=== PATIENT | male | born 1970 | race Caucasian/White ===

== ENCOUNTER 2020-02-10 23:36 | Emergency (ER) | payer OTHER, SELFPAY ==
[2020-02-10 23:56] VITALS: BP 158/103; PULSE 69; RESP 16; O2SAT 96; BMI 38.7
[2020-02-11] VITALS (8 sets, daily range): BP systolic 133; BP diastolic 77; PULSE 60–68; RESP 16; O2SAT 96–97
--- NOTE | 2020-02-11 00:23 | ED_ITS ---
HPI - Abdominal Pain General Chief Complaint: Abdominal Pain Stated Complaint: lower left abd and testicle pain Time Seen by Provider: 02/11/20 00:04 Source: patient History of Present Illness HPI narrative: Patient complains sudden onset left lower quadrant pain radiating to left testicle 8:00 p.m. last night, 28 hours ago, no nausea vomiting no blood in urine or stools no urinary complaints. No recent illness. No cough cold congestion fever chills. No back pain. No numbness tingling or weakness. No syncope. Patient states pain has been waxing and waning. At times improved with NSAIDs including aspirin and naproxen. No history of hernia. Related Data Previous Rx's Medication Instructions Recorded ondansetron 4 mg PO Q8H PRN #10 tab 02/11/20 tamsulosin [Flomax] 0.4 mg PO BEDTIME #7 cap 02/11/20 Allergies Allergy/AdvReac Type Severity Reaction Status Date / Time No Known Drug Allergies Allergy Verified 02/11/20 00:51 Review of Systems Review of Systems Narrative: GENERAL: Denies chills, fatigue, malaise, fever, sweats. HEENT: Denies sinus pain, ear pain, sore throat, difficulty swallowing, dizziness. RESPIRATORY: Denies dyspnea, cough, wheezing, hemoptysis, sputum. CARDIOVASCULAR: Denies chest pain, palpitations, orthopnea, edema, GASTROINTESTINAL: Complains of abdominal pain, no nausea vomiting diarrhea : Denies dysuria, frequency, incontinence, hematuria, urinary retention. Complains of left testicular pain, no urethral discharge MUSCULOSKELETAL: denies weakness, joint pain, or bony pain SKIN: Denies rash, skin lesions, or other NEUROLOGIC: Denies weakness, headache, numbness, change in speech, confusion, seizures, incoordination. PSYCHIATRIC: No concerning psychosocial issues. ROS Unobtainable: All systems reviewed & are unremarkable except as noted in HPI and below Exam Narrative Exam Narrative: GENERAL: patient appears stated age. Well-nourished, well- developed patient, in no distress, not toxic HEAD: Atraumatic. Normocephalic. EYES: Pupils equal round and reactive. Extraocular motions intact. No scleral icterus. No injection or drainage. ENT: Nose without bleeding, purulent drainage. Throat without erythema, tonsillar hypertrophy or exudate. Airway patent. NECK: Trachea midline. Non tender CARDIOVASCULAR: Regular rate and rhythm without murmurs, gallops, or rubs. RESPIRATORY: Clear to auscultation. Breath sounds equal bilaterally. No wheezes, rales, or rhonchi. GASTROINTESTINAL: Abdomen soft, reproducible left lower quadrant tenderness no rebound tenderness, no peritoneal signs, bowel sounds normal : Patient is uncircumcised, no lesions, no urethral discharge, on examination of bilateral testicles, nontender testicles and epididymis no induration or erythema or edema of scrotal areas, no palpable hernia on digital insertion of scrotal sac and coughing EXTREMITIES: No edema or joint tenderness. BACK: Nontender without deformity or crepitance. No flank tenderness. NEURO: AOx3. SKIN: No rash or erythema of visible areas Initial Vital Signs Initial Vital Signs: Vital Signs Pulse Rate 69 02/10/20 23:56 Respiratory Rate 16 02/10/20 23:56 Blood Pressure 158/103 H 02/10/20 23:56 Pulse Oximetry 96 02/10/20 23:56 Course Course Course Narrative: Pain resolved with Toradol. Not toxic, Orders Ordered: ED Orders 02/11/20 00:23 CT abdomen pelvis wo con Stat 02/11/20 00:47 Complete Blood Count AUTO DIFF Stat Comprehensive Metabolic Panel Stat 02/11/20 02:40 Urinalysis and Microscopic Stat Discontinued Medications Sodium Chloride (Normal Saline 0.9%) 1,000 mls @ 1,000 mls/hr IV BOLUS ONE Stop: 02/11/20 01:17 Last Infusion: 02/11/20 02:29 Dose: 0 mls/hr Documented by: Admin: 02/11/20 01:17 Dose: 1,000 mls/hr Documented by: MANOLO Ketorolac Tromethamine (Toradol) 15 mg IV NOW ONE Stop: 02/11/20 01:11 Last Admin: 02/11/20 01:17 Dose: 15 mg Documented by: MANOLO Tamsulosin HCl (Flomax) 0.4 mg PO NOW ONE Stop: 02/11/20 01:58 Last Admin: 02/11/20 02:32 Dose: 0.4 mg Documented by: MANOLO Reevaluation(s) Reevaluation #1: Pain improved with Toradol. Patient desires discharge home. Patient agrees no narcotic prescription Time: 01:59 Vital Signs Vital signs: Vital Signs - 8 hr 02/10/20 23:56 02/11/20 01:36 02/11/20 01:40 Pulse Rate 69 61 61 Respiratory Rate 16 Blood Pressure 158/103 H Pulse Oximetry 96 97 97 02/11/20 01:50 02/11/20 02:00 02/11/20 02:10 Pulse Rate 66 60 61 Respiratory Rate Blood Pressure Pulse Oximetry 97 96 97 02/11/20 02:20 02/11/20 02:30 02/11/20 03:16 Pulse Rate 60 68 68 Respiratory Rate 16 Blood Pressure 133/77 Pulse Oximetry 97 97 97 MDM - Abdominal Pain Differential Diagnosis Differential diagnosis: Likely abdominal pain, calculus of kidney, diverticulitis and small bowel obstruction Lab Data Attestation: I reviewed the patient's lab results. Result diagrams: 02/11/20 00:47 02/11/20 00:47 Labs: Lab Results 02/11/20 02/11/20 02/11/20 Range/Units 00:47 00:47 02:40 WBC 7.6 (4.5-11.0) X10^3/uL RBC 5.03 (4.5-5.9) X10^6/uL Hgb 15.0 (13.5-17.5) g/dL Hct 42.6 (41-53) % MCV 84.7 (80-100) fL MCH 29.8 (26-34) PG MCHC 35.2 (30-36) % RDW 13.3 (11.6-14.8) % Plt Count 236 (150-400) X10^3/uL Neut % (Auto) 55.3 (50-75) % Lymph % (Auto) 29.5 (25-40) % [place] % (Auto) 11.6 (3-14) % Eos % (Auto) 2.8 (2-4) % Baso % (Auto) 0.8 (0-2) % Neut # (Auto) 4200 (7068-0504) /uL Lymph # (Auto) 2200 (1674-1560) /uL [place] # (Auto) 900 (0-900) /uL Eos # (Auto) 200 (0-450) /uL Baso # (Auto) 100 (0-100) /uL Sodium 136 L (137-145) mmol/L Potassium 3.9 (3.4-5.1) mmol/L Chloride 100 (98-107) mmol/L Carbon Dioxide 30 (22-32) mmol/L BUN 19 (9-20) mg/dL Creatinine 1.18 (0.66-1.25) mg/dL Estimated GFR > 60.0 (>60) mL/min BUN/Creatinine Ratio 16.1 (6-22) Glucose 89 (70-100) mg/dL Calcium 9.3 (8.4-10.2) mg/dL Total Bilirubin 0.6 (0.2-1.3) mg/dL AST 25 (17-59) IU/L ALT 18 (<50) IU/L Alkaline Phosphatase 66 (38-126) U/L Total Protein 7.5 (6.3-8.2) g/dL Albumin 4.2 (3.5-5.0) g/dL Globulin 3.3 (1.7-4.1) g/dL Albumin/Globulin Ratio 1.3 (1.0-2.8) Urine Color Yellow Urine Appearance Clear Urine pH 5.0 (4.5-8.0) Ur Specific [place] 1.020 (1.000-1.035) Urine Protein Negative (Negative) Urine Glucose (UA) Negative (Negative) g/dL Urine Ketones Negative (NEGATIVE) Urine Occult Blood 1+ H (Negative) Urine Nitrate Negative (Negative) Urine Bilirubin Negative (NEGATIVE) Urine Urobilinogen 0.2 (0.2) E.U./dL Ur Leukocyte Esterase Negative (NEGATIVE) Urine RBC 0-1/hpf (0-5/HPF) Urine WBC 0-1/hpf (0-5/HPF) Ur Squamous Epith Cells 0-1 /hpf (0-5/HPF) Urine Bacteria Occasional (0-1) (None) Urine Mucus 1+ H (Negative) Ur Culture Indicated? Cult not indicated Imaging Data CT scan - abdomen/pelvis: Radiologist's Impression: Results faxed here, CT scan abdomen pelvis shows moderate left hydronephrosis secondary to a 2 mm calculus in the distal left ureter MDM Narrative Medical decision making narrative: No antibiotics at this time. No fever. No leukocytosis, appropriate for follow-up with Urology pain is controlled Discharge Plan Departure Patient Disposition: Home Clinical Impression: Calculus, ureteral Discharge Date/Time: 02/11/20 03:17 Instructions: DI for Kidney Stones Activity Restrictions/Additional Instructions: Return if worse. Call provided urology office tomorrow for office recheck within a week. Drink plenty of fluids. May continue ibuprofen or naproxen for pain Prescriptions: New tamsulosin [Flomax] 0.4 mg capsule 0.4 mg PO BEDTIME Qty: 7 RF: 0 ondansetron 4 mg tablet,disintegrating 4 mg PO Q8H PRN (Reason: nausea and vomiting) Qty: 10 RF: 0 Referrals: Stevenson Linn MD [Physician] - 02/11/20
--- NOTE | 2020-02-11 00:23 | DI.CT.S_ITS ---
PROCEDURE: CT ABDOMEN PELVIS WO CON INDICATIONS: Left lower quadrant pain TECHNIQUE: Noncontrast 5 mm thick sections acquired from the diaphragms to the symphysis. 5 mm thick coronal and sagittal reformats were then performed. For radiation dose reduction, the following was used: automated exposure control, adjustment of mA and/or kV according to patient size. COMPARISON: None. FINDINGS: Image quality: Excellent. Lung bases: Lung bases are clear. Heart size is normal. Urinary system: Right kidney is normal in size. There is relative atrophy of the left kidney compared to the right. No right-sided kidney stones. No right-sided hydronephrosis or perinephric fat stranding. There is a 2 mm distal left ureteral stone identified approximately 1 cm proximal to the left ureterovesicular junction. There is associated left hydroureteronephrosis and mild left perinephric stranding. The right ureter appears non-dilated throughout its expected course without ureteral stones visualized. Bladder wall thickness is normal; no calcified bladder stones. Other solid organs: Liver is normal in size. Gallbladder is unremarkable. Pancreas is normal in contours. Spleen is normal in size. No adrenal nodules. Peritoneum and bowel: Unenhanced bowel loops demonstrate normal wall thickness and caliber. No free fluid or air. Normal appendix. Nodes and vessels: No retroperitoneal or mesenteric adenopathy by size criteria. Aorta and inferior vena cava are normal in caliber. Abdominal wall: There is a fat-containing umbilical hernia without acute inflammation. No ventral hernias. Pelvis: No free pelvic fluid. No inguinal hernias or adenopathy. Bones: No suspicious bony lesions. No vertebral body compression fractures. Multilevel spondylitic changes of the imaged spine. IMPRESSION: 1. A 2 mm distal left ureteral stone with associated left hydroureteronephrosis. 2. Normal appendix. No significant discrepancy with the overnight stocker radiology preliminary report. Dictated by: Zachery Mcgovern M.D. on 02/11/2020 at 8:51 Approved by: Zachery Mcgovern M.D. on 02/11/2020 at 8:55
[2020-02-11 00:55] LABS: Add Manual Diff / Slide Review NO; Basophils Absolute Auto 100 /uL (0-100); Basophils Percent Auto 0.8 % (0-2); Eosinophils Absolute Auto 200 /uL (0-450); Eosinophils Percent Auto 2.8 % (2-4); Hematocrit 42.6 % (41-53); Lymphocytes Absolute Auto 2200 /uL (1100-4500); Lymphocytes Percent Auto 29.5 % (25-40); Mean Corpuscular HGB Conc 35.2 % (30-36); Mean Corpuscular Hemoglobin 29.8 PG (26-34); Mean Corpuscular Volume 84.7 fL (80-100); Monocytes Absolute Auto 900 /uL (0-900); Monocytes Percent Auto 11.6 % (3-14); Neutrophils Absolute Auto 4200 /uL (1500-7000); Neutrophils Percent Auto 55.3 % (50-75); Platelet Count 236 X10^3/uL (150-400); Red Blood Cell Count 5.03 X10^6/uL (4.5-5.9); Red Cell Distribution Width 13.3 % (11.6-14.8); White Blood Cell Count 7.6 X10^3/uL (4.5-11.0)
[2020-02-11 01:05] LABS: Alanine Aminotransferase 18 IU/L (<50); Albumin 4.2 g/dL (3.5-5.0); Albumin Globulin Ratio 1.3 (1.0-2.8); Alkaline Phosphatase 66 U/L (38-126); Aspartate Aminotransferase 25 IU/L (17-59); BUN Creatinine Ratio 16.1 (6-22); Bilirubin Total 0.6 mg/dL (0.2-1.3); Blood Urea Nitrogen 19 mg/dL (9-20); Calcium 9.3 mg/dL (8.4-10.2); Carbon Dioxide 30 mmol/L (22-32); Chloride 100 mmol/L (98-107); Estimated Glomerular Filt Rate > 60.0 mL/min (>60); Globulin 3.3 g/dL (1.7-4.1); Glucose 89 mg/dL (70-100); HEMOLYSIS 16 (0-50); Potassium 3.9 mmol/L (3.4-5.1); Sodium 136 mmol/L (137-145); Total Protein 7.5 g/dL (6.3-8.2)
[2020-02-11] MEDS: KETOROLAC 60 MG/2 ML VIAL 15 MG IV (01:17)
[2020-02-11] MEDS: SODIUM CHLORIDE 0.9% 1,000 ML 1000 ML IV (01:17)
[2020-02-11] MEDS: TAMSULOSIN 0.4 MG CAPSULE PO (02:32)
[2020-02-11 02:54] LABS: Appearance Urine UA CLEAR; Bilirubin Urine UA NEGATIVE (NEGATIVE); Color Urine UA YELLOW; Glucose Urine UA NEGATIVE (Negative); Ketones Urine UA NEGATIVE (NEGATIVE); Leukocyte Esterase Urine UA NEGATIVE (NEGATIVE); Nitrite Urine UA NEGATIVE (Negative); Occult Blood Urine UA 1+ (Negative); Protein Urine UA NEGATIVE (Negative); Urobilinogen Urine UA 0.2 E.U./dL (0.2)
[2020-02-11 02:59] LABS: Bacteria Urine Occasional (0-1); Culture Indicated Urine Cult Not Indicated; Mucus Urine 1+ (Negative); RBC Urine 0-1/HPF (0-5/HPF); Squamous Epithelial Cell Urine 0-1 /HPF (0-5/HPF); WBC Urine 0-1/HPF (0-5/HPF)
== END 2020-02-11 03:17 | disposition home or self-care (01) ==
PROVIDERS: Emergency Provider Emergency Medicine
DX: N20.1 Calculus of ureter (principal)
CPT/HCPCS: 36415; 74176; 80053; 81001; 85025; 96361; 96374; 99284; J1885

== ENCOUNTER 2021-07-09 16:45 | Observation (INO) | payer OTHER, SELFPAY ==
[2021-07-09 17:05] VITALS: BP 142/90; PULSE 71; RESP 20; TEMP 36.4; O2SAT 99; BMI 38.7
--- NOTE | 2021-07-09 17:30 | DI.US.S_ITS ---
PROCEDURE: US ABDOMEN LIMITED INDICATIONS: Umbilical hernia TECHNIQUE: Real-time focused scanning was performed of the abdomen, with image documentation. COMPARISON: [facility], CT, CT ABDOMEN PELVIS WO CON, 02/11/2020, 0:29. FINDINGS: There is again seen a periumbilical hernia, which is believed to contain fat and not bowel. The herniated contents measure 4.5 x 3.4 x 3.9 cm, with the hernia orifice of 4 cm. This does not change with Valsalva maneuver. No abnormal vascularity can be seen. IMPRESSION: Prominent periumbilical hernia, which is believed to contain omental fat. Dictated by: Usama Beck M.D. on 07/09/2021 at 17:16 Approved by: Usama Beck M.D. on 07/09/2021 at 17:17
--- NOTE | 2021-07-09 17:38 | ED_ITS ---
HPI - Abdominal Pain <Carlos Hernandez PA-C - Last Filed: 07/10/21 17:22> General Chief Complaint: Abdominal Pain Stated Complaint: hernia, abd pain Time Seen by Provider: 07/09/21 17:19 Source: patient Mode of arrival: Ambulatory Limitations: no limitations History of Present Illness HPI narrative: Patient is a 50-year-old male presenting to the emergency department today for evaluation abdominal pain that began 5 days ago. Patient states that he had been moving lumber and shelving the day prior to the onset of his pain, noting that he awoke with the pain. He states that he believes he has an umbilical hernia a notes that his pain has stayed constant since Monday. Of note, he explains that he has attempted to reduce it in the shower without success. Patient denies pain elsewhere in his abdomen. No fever, chills, chest pain, shortness of breath, nausea, vomiting, diarrhea, dysuria, testicular pain reported. No other concerns voiced at this time. Related Data Previous Rx's Medication Instructions Recorded cephalexin 500 mg capsule 500 mg PO QID #14 cap 07/10/21 naproxen 500 mg tablet (Naprosyn) 500 mg PO BID PRN #14 tab 07/10/21 Allergies Allergy/AdvReac Type Severity Reaction Status Date / Time No Known Drug Allergies Allergy Verified 07/09/21 17:04 Review of Systems <Carlos Hernandez PA-C - Last Filed: 07/10/21 17:22> Constitutional Constitutional: Denies chills, Denies fatigue, Denies fever(s), Denies frequent falls, Denies lethargy and Denies weakness Eyes Eyes: Denies loss of vision ENT Ears, Nose, Mouth, and Throat: Denies dizziness Cardiovascular Cardiovascular: Denies chest pain, Denies irregular heart rhythm, Denies lightheadedness, Denies palpitations, Denies dyspnea, Denies dyspnea on exertion and Denies orthopnea Respiratory Respiratory: Denies cough, Denies dyspnea, Denies dyspnea on exertion and Denies wheezing Gastrointestinal Gastrointestinal: Reports abdominal pain (Over the umbilicus), Denies change in bowel habits, Denies diarrhea, Denies nausea and Denies vomiting Genitourinary Genitourinary: Denies hematuria, Denies flank pain, Denies urinary incontinence and Denies urinary urgency Musculoskeletal Musculoskeletal: Denies numbness and Denies tingling Neurologic Neurologic: Denies behavioral changes, Denies confusion, Denies dizziness, Denies frequent falls, Denies loss of vision, Denies numbness, Denies tingling and Denies weakness Psychiatric Psychiatric: Denies behavioral changes and Denies confusion Endocrine Endocrine: Denies fatigue and Denies palpitations Allergic/Immunologic Allergic/Immunologic: Denies wheezing Patient History <Carlos Hernandez PA-C - Last Filed: 07/10/21 17:22> Medical History Calculus of kidney Erectile dysfunction History of nephrolithiasis Social History household members: spouse Smoking Status: Never smoker alcohol intake: current Smoking Status: Former smoker Substance Use Type: does not use Exam <Carlos Hernandez PA-C - Last Filed: 07/10/21 17:22> Narrative Exam Narrative: GENERAL: 50 year old patient appears stated age. Well-developed patient, in mild distress. HEAD: Atraumatic. Normocephalic. EYES: Pupils equal round and reactive. Extraocular motions intact. No scleral icterus. No injection or drainage. ENT: Nose without bleeding, purulent drainage. Throat without erythema, tonsillar hypertrophy or exudate. Airway patent. NECK: Trachea midline. Non tender CARDIOVASCULAR: Regular rate and rhythm without murmurs, gallops, or rubs. RESPIRATORY: Clear to auscultation. Breath sounds equal bilaterally. No wheezes, rales, or rhonchi. GASTROINTESTINAL: Abdomen soft, nondistended. No tenderness to palpation appreciated throughout the 4 quadrants of the abdomen. Protrusion noted over the superior portion the umbilicus with overlying erythema and induration. Protrusion is unable to be reduced with light continuous pressure. No excessive warmth appreciated. EXTREMITIES: No edema or joint tenderness. BACK: Nontender without deformity or crepitance. No flank tenderness. NEURO: AOx3. SKIN: No rash or erythema of visible areas Initial Vital Signs Initial Vital Signs: Vital Signs Temperature 97.5 F L 07/09/21 17:05 Pulse Rate 71 07/09/21 17:05 Respiratory Rate 20 07/09/21 17:05 Blood Pressure 142/90 H 07/09/21 17:05 Pulse Oximetry 99 07/09/21 17:05 <Gabe Pendleton DO - Last Filed: 07/10/21 17:25> Initial Vital Signs Initial Vital Signs: Vital Signs Temperature 97.5 F L 07/09/21 17:05 Pulse Rate 71 07/09/21 17:05 Respiratory Rate 20 07/09/21 17:05 Blood Pressure 142/90 H 07/09/21 17:05 Pulse Oximetry 99 07/09/21 17:05 Course <Carlos Hernandez PA-C - Last Filed: 07/10/21 17:22> Course Course Narrative: Abdominal ultrasound obtained, oxycodone and Valium administered. Will attempt reduction with patient in Trendelenburg Orders Ordered: Discontinued Medications Acetaminophen (Acetaminophen 325 Mg Tablet) 975 mg PO NOW ONE Stop: 07/09/21 23:31 Last Admin: 07/10/21 01:24 Dose: 975 mg Documented by: MONICA Acetaminophen (Acetaminophen 325 Mg Tablet) 975 mg PO Q8H PRN PRN Reason: Pain, Mild (1-3) Bupivacaine HCl (Bupivacaine 0.5% (Pf) Vial) 30 ml INJ NOW ONE Stop: 07/09/21 23:57 Last Admin: 07/09/21 23:56 Dose: 10 ml Documented by: CLEVELAND Cefazolin Sodium (Cefazolin 1 Gm Vial) 3 gm IV NOW ONE Stop: 07/09/21 23:31 Last Admin: 07/09/21 23:39 Dose: 3 gm Documented by: VAMSI Cefazolin Sodium/Dextrose (Cefazolin 2 Gm/20 Ml Syringe) 2 gm IV INTRA-OP ONE Stop: 07/09/21 22:38 Last Admin: 07/09/21 23:58 Dose: Not Given Documented by: TUCKER Cefazolin Sodium/Dextrose (Cefazolin 2 Gm/20 Ml Syringe) 2 gm IV Q8H [facility] Last Admin: 07/10/21 08:03 Dose: 2 gm Documented by: KIMBERLI Diazepam (Diazepam 5 Mg Tablet) 5 mg PO NOW ONE Stop: 07/09/21 17:44 Last Admin: 07/09/21 17:48 Dose: 5 mg Documented by: IMELDA Enoxaparin Sodium (Enoxaparin 40 Mg/0.4 Ml Syringe) 40 mg SUBCUT DAILY [facility] Last Admin: 07/10/21 08:03 Dose: 40 mg Documented by: KIMBERLI Fentanyl (Fentanyl 100 Mcg/2 Ml Inj) 0 mcg IV Q5MIN PRN PRN Reason: Pain, Severe (7-10) Gabapentin (Gabapentin 300 Mg Capsule) 300 mg PO NOW ONE Stop: 07/09/21 23:31 Last Admin: 07/10/21 01:23 Dose: 300 mg Documented by: MONICA Hydromorphone HCl (Hydromorphone 2 Mg Inj) 0 mg IV Q5MIN PRN PRN Reason: Pain, Mild (1-3) Lactated Ringer's (Lactated Ringers) 1,000 mls @ 200 mls/hr IV CONT ONE Stop: 07/10/21 00:09 Last Infusion: 07/09/21 23:10 Dose: 0 mls/hr Documented by: Admin: 07/09/21 22:18 Dose: 200 mls/hr Documented by: KAY Lactated Ringer's (Lactated Ringers) 1,000 mls @ 42 mls/hr IV CONT [facility] Last Admin: 07/10/21 00:49 Dose: 42 mls/hr Documented by: Infusion: 07/10/21 00:49 Dose: 42 mls/hr Documented by: Admin: 07/09/21 23:10 Dose: 42 mls/hr Documented by: TUCKER Lactated Ringer's (Lactated Ringers) 1,000 mls @ 120 mls/hr IV CONT [facility] Last Admin: 07/10/21 02:54 Dose: Not Given Documented by: CHRISTOPHER Ketorolac Tromethamine (Ketorolac 30 Mg/Ml Vial) 30 mg IV Q6HR PRN PRN Reason: Pain, Moderate (4-6) Stop: 07/15/21 01:23 Last Admin: 07/10/21 07:54 Dose: 30 mg Documented by: Admin: 07/10/21 02:06 Dose: 30 mg Documented by: CHRISTOPHER Naloxone HCl (Naloxone 0.4 Mg/Ml Vial) 0.2 mg IV Q2MIN PRN PRN Reason: Opiate Reversal Ondansetron HCl (Ondansetron 4 Mg/2 Ml Inj) 4 mg IV NOW PRN PRN Reason: Nausea And Vomiting Ondansetron HCl (Ondansetron 4 Mg/2 Ml Inj) 4 mg IV Q4HR PRN PRN Reason: Nausea And Vomiting Oxycodone HCl (Oxycodone Ir 5 Mg Tablet) 5 mg PO NOW ONE Stop: 07/09/21 17:44 Last Admin: 07/09/21 17:48 Dose: 5 mg Documented by: IMELDA Oxycodone HCl (Oxycodone Ir 5 Mg Tablet) 5 mg PO PACUNOW PRN PRN Reason: Mild or moderate pain Oxycodone HCl (Oxycodone Ir 5 Mg Tablet) 5 mg PO Q3HR PRN PRN Reason: Pain, Moderate (4-6) Vital Signs Vital signs: Vital Signs - 8 hr 07/09/21 17:05 Temperature 97.5 F L Pulse Rate 71 Respiratory Rate 20 Blood Pressure 142/90 H Pulse Oximetry 99 <Gabe Pendleton DO - Last Filed: 07/10/21 17:25> Orders Ordered: Discontinued Medications Acetaminophen (Acetaminophen 325 Mg Tablet) 975 mg PO NOW ONE Stop: 07/09/21 23:31 Last Admin: 07/10/21 01:24 Dose: 975 mg Documented by: MONICA Acetaminophen (Acetaminophen 325 Mg Tablet) 975 mg PO Q8H PRN PRN Reason: Pain, Mild (1-3) Bupivacaine HCl (Bupivacaine 0.5% (Pf) Vial) 30 ml INJ NOW ONE Stop: 07/09/21 23:57 Last Admin: 07/09/21 23:56 Dose: 10 ml Documented by: CLEVELAND Cefazolin Sodium (Cefazolin 1 Gm Vial) 3 gm IV NOW ONE Stop: 07/09/21 23:31 Last Admin: 07/09/21 23:39 Dose: 3 gm Documented by: VAMSI Cefazolin Sodium/Dextrose (Cefazolin 2 Gm/20 Ml Syringe) 2 gm IV INTRA-OP ONE Stop: 07/09/21 22:38 Last Admin: 07/09/21 23:58 Dose: Not Given Documented by: TUCKER Cefazolin Sodium/Dextrose (Cefazolin 2 Gm/20 Ml Syringe) 2 gm IV Q8H [facility] Last Admin: 07/10/21 08:03 Dose: 2 gm Documented by: KIMBERLI Diazepam (Diazepam 5 Mg Tablet) 5 mg PO NOW ONE Stop: 07/09/21 17:44 Last Admin: 07/09/21 17:48 Dose: 5 mg Documented by: IMELDA Enoxaparin Sodium (Enoxaparin 40 Mg/0.4 Ml Syringe) 40 mg SUBCUT DAILY [facility] Last Admin: 07/10/21 08:03 Dose: 40 mg Documented by: KIMBERLI Fentanyl (Fentanyl 100 Mcg/2 Ml Inj) 0 mcg IV Q5MIN PRN PRN Reason: Pain, Severe (7-10) Gabapentin (Gabapentin 300 Mg Capsule) 300 mg PO NOW ONE Stop: 07/09/21 23:31 Last Admin: 07/10/21 01:23 Dose: 300 mg Documented by: MONICA Hydromorphone HCl (Hydromorphone 2 Mg Inj) 0 mg IV Q5MIN PRN PRN Reason: Pain, Mild (1-3) Lactated Ringer's (Lactated Ringers) 1,000 mls @ 200 mls/hr IV CONT ONE Stop: 07/10/21 00:09 Last Infusion: 07/09/21 23:10 Dose: 0 mls/hr Documented by: Admin: 07/09/21 22:18 Dose: 200 mls/hr Documented by: KAY Lactated Ringer's (Lactated Ringers) 1,000 mls @ 42 mls/hr IV CONT [facility] Last Admin: 07/10/21 00:49 Dose: 42 mls/hr Documented by: Infusion: 07/10/21 00:49 Dose: 42 mls/hr Documented by: Admin: 07/09/21 23:10 Dose: 42 mls/hr Documented by: TUCKER Lactated Ringer's (Lactated Ringers) 1,000 mls @ 120 mls/hr IV CONT [facility] Last Admin: 07/10/21 02:54 Dose: Not Given Documented by: CHRISTOPHER Ketorolac Tromethamine (Ketorolac 30 Mg/Ml Vial) 30 mg IV Q6HR PRN PRN Reason: Pain, Moderate (4-6) Stop: 07/15/21 01:23 Last Admin: 07/10/21 07:54 Dose: 30 mg Documented by: Admin: 07/10/21 02:06 Dose: 30 mg Documented by: CHRISTOPHER Naloxone HCl (Naloxone 0.4 Mg/Ml Vial) 0.2 mg IV Q2MIN PRN PRN Reason: Opiate Reversal Ondansetron HCl (Ondansetron 4 Mg/2 Ml Inj) 4 mg IV NOW PRN PRN Reason: Nausea And Vomiting Ondansetron HCl (Ondansetron 4 Mg/2 Ml Inj) 4 mg IV Q4HR PRN PRN Reason: Nausea And Vomiting Oxycodone HCl (Oxycodone Ir 5 Mg Tablet) 5 mg PO NOW ONE Stop: 07/09/21 17:44 Last Admin: 07/09/21 17:48 Dose: 5 mg Documented by: IMELDA Oxycodone HCl (Oxycodone Ir 5 Mg Tablet) 5 mg PO [place]OW PRN PRN Reason: Mild or moderate pain Oxycodone HCl (Oxycodone Ir 5 Mg Tablet) 5 mg PO Q3HR PRN PRN Reason: Pain, Moderate (4-6) Vital Signs Vital signs: Vital Signs - 8 hr 07/09/21 17:05 Temperature 97.5 F L Pulse Rate 71 Respiratory Rate 20 Blood Pressure 142/90 H Pulse Oximetry 99 MDM - Abdominal Pain <Carlos Hernandez PA-C - Last Filed: 07/10/21 17:22> Lab Data Labs: Lab Results 07/09/21 Range/Units 19:20 SARS-CoV-2 (PCR) Negative (Negative) Imaging Data US - abdomen: Radiologist's Impression: PROCEDURE: US ABDOMEN LIMITED ? INDICATIONS:? Umbilical hernia ? TECHNIQUE:? Real-time focused scanning was performed of the abdomen, with image documentation.? ? COMPARISON:? [facility], CT, CT ABDOMEN PELVIS WO CON, 02/11/2020, 0:29. ? FINDINGS:? There is again seen a periumbilical hernia, which is believed to contain fat and not bowel.? The herniated contents measure 4.5 x 3.4 x 3.9 cm, with the hernia orifice of 4 cm.? This does not change with Valsalva maneuver. No abnormal vascularity can be seen.? ? ? IMPRESSION:? Prominent periumbilical hernia, which is believed to contain omental fat.? ? Dictated by: Usama Beck M.D. on 07/09/2021 at 17:16 ? ? Approved by: Usama Beck M.D. on 07/09/2021 at 17:17 ? <Gabe Pendleton DO - Last Filed: 07/10/21 17:25> Lab Data Labs: Lab Results 07/09/21 Range/Units 19:20 SARS-CoV-2 (PCR) Negative (Negative) Discharge Plan Departure Patient Disposition: Admitted as Observation Clinical Impression: Umbilical hernia with gangrene Admit Date/Time: 07/09/21 22:32 Admit Provider: [place] <Gabe Pendleton, DO - Last Filed: 07/10/21 17:25> Cosign ED Attending Cosignature Attestation: Dr Pendleton Co-Sign Statement: I was available for consultation during this patient's emergency department visit. This chart is signed by myself for administrative purposes only. I did not have direct contact with this patient during this visit. They were seen independently by the APC.
[2021-07-09] MEDS: diazePAM 5 MG TABLET PO (17:48)
[2021-07-09] MEDS: OXYCODONE IR 5 MG TABLET PO (17:48)
--- NOTE | 2021-07-09 19:06 | P.HP_ITS ---
History of Present Illness History of Present Illness Chief complaint: hernia, abd pain Narrative: Patient is a gentleman who had pain and swelling began to develop Monday after he was doing some moving. The pain has gradually increased over the last 5 days. He has been eating fine. Last p.o. solids was 10 30 this a.m. and liquids about 2:00 p.m. no prior history of this. No nausea or vomiting. The pain is entirely localized and a dull ache near his umbilicus. Patient History Medical History Calculus of kidney Erectile dysfunction History of nephrolithiasis Family & Social History Safety & Behavioral: Feels Safe in Current Yes Environment Tobacco & Substance use: Smoking Status Former smoker Substance Use Type does not use Meds Home Medications and Allergies Allergies Allergy/AdvReac Type Severity Reaction Status Date / Time No Known Drug Allergies Allergy Verified 07/09/21 17:04 Review of Systems Review of Systems Narrative: Patient denies visual difficulties other than wearing glasses. No pain in his eyes or double vision. No earache sore throats or trouble swallowing. No tooth aches. No cough cold or asthma. No chest pain or heart problems. No black or bloody bowel movements. He has never had a colonoscopy but he has just turned 50 this year. He has had a history kidney stones. Last was treated in March of 2020. He does not take medication for that however. Exam Vital Signs (past 8 hours): - 07/09/21 17:05 Temperature 97.5 F L Pulse Rate 71 Respiratory Rate 20 Blood Pressure 142/90 H Pulse Oximetry 99 Oxygen Delivery Method Room Air Narrative Exam Narrative: No apparent distress. His eyes are nonicteric. Lungs are clear to auscultation no rales or rhonchi. Heart regular rate and rhythm without murmur gallop. Ab domen is protuberant soft. There is a red bulging area just above his umbilicus.(others have attempted reduction and it was not able to be reduced so I did not attempt to do so). Patient is alert and oriented. Normal speech rate and content. All appropriate. Assessment & Plan Assessment and plan (1) Umbilical hernia with gangrene: Status: Acute Assessment & Plan narrative: Patient with a probable strangulated umbilical hernia. It is at least incarc erated. Given his lack of symptoms except locally I suspect this is a hernia containing fat. I have discussed the procedure with him to repair this and remove any tissue. Risks of bleeding, infection, and fairly high risk of recurrence were all discussed with him. I discussed with him restrictions after the procedure including 6 weeks of no lifting over 10 lb or straining. He may walk. He should not drive until he is pain-free off medication. He appears to understand. He wishes to proceed. Time Spent With Patient Critical Care time: I spent a total of [] minutes of critical care time on this patient's care today; this time is exclusive of procedural time.
[2021-07-09 20:25] LABS: COVID19 - ADMIT (NP swab/PCR) Negative (Negative)
[2021-07-09] MEDS: LACTATED RINGERS 1,000 ML 200 ML IV (22:18)
--- NOTE | 2021-07-09 22:39 | PM.PREOP ---
Pre-operative Note COVID-19 COVID-19 status: Negative Result date/Date tested (Pos, Neg/Pending): 07/09/21 Interval Note History & Physical reviewed/Exam performed by Physician: Yes Changes to H&P: No
[2021-07-09] MEDS: LACTATED RINGERS 1,000 ML 42 ML IV (23:10)
[2021-07-09 23:25] VITALS: BP 126/80; PULSE 60; RESP 16; TEMP 36.5; O2SAT 99; BMI 38.7
[2021-07-09] MEDS: CEFAZOLIN 1 GM VIAL 3 GM IV (23:39)
--- NOTE | 2021-07-09 23:51 | SUR.OPER ---
Addendum entered by Denise Lopez R.N. 07/10/21 00:00: Patients glasses placed in black glass case with patient label and brought with patient to PACU. Prior to transport to Pre-op, Patients Amie took patients personal belongings/clothing. Original Note: Supine on padded OR bed, head on pillow, arms secured on padded arm boards at <90 degrees abduction, legs uncrossed, safety belt at thigh, tape over blanket over lower legs.
[2021-07-09] MEDS: BUPIVACAINE 0.5% (PF) VIAL 30 ML INJ (23:56)
[2021-07-10] VITALS (12 sets, daily range): BP systolic 109–150; BP diastolic 69–87; PULSE 65–78; RESP 10–20; TEMP 36.2–37; O2SAT 91–97; BMI 38.7; BMI 38.9
[2021-07-10] MEDS: LACTATED RINGERS 1,000 ML 42 ML IV (00:49)
--- NOTE | 2021-07-10 01:13 | PM.OP.1 ---
Operative Date/Time/Diagnoses Date of procedure: 07/10/21 Time of procedure: 01:14 Pre-op diagnosis: Strangulated umbilical hernia Post-op diagnosis: same ( hernia sac and a small portion of fat within it) Procedure & Clinicians Procedure: Repair of umbilical hernia Same procedure as scheduled: Yes Indications: 5 day history of pain at the umbilicus. Redness at the time of presentation to the emergency room with tenderness at the site of a palpable visible mass Surgeon: West Carlos Click Yes if Unassisted: Yes Anesthesia Type: General Operative Notes Findings: Did hernia sac with a small amount of fat within it Closure Type: primary Specimen(s): none sent Prosthetic devices, grafts, tissues, transplants, or devices: None Estimated Blood Loss (mL): 5 Procedure in detail: The patient was placed supine on the operating room table and underwent general LMA anesthesia. He was prepped and draped in the usual fashion. Local anesthetic was infiltrated in a field block fashion around the visible protrusion at the umbilicus. As it was principally protruding at the upper edge of the umbilicus a curvilinear incision was made at the upper edge overlying this mass. It was carried down through skin and dermis to the subcu fat which was dissected off this underlying hernia. I all the subcutaneous tissues down to the fascia from this hernia sac. There are areas of discoloration giving the impression that there could be intestine within it. Part of it was clearly fat. I.e. had great difficulty seeing to the base of this hernia sac and the fascial edge due to the patient's habitus. I had to extend an incision along the midline superiorly and bring this down to the level the fascia in order to see an open the fascia at the level of the hernia sac. This released tension on the contents of the sac and allowed me to dissect the peritoneal edge off of the fascia. The hernia sac was then entered and found that the discoloration was actually a portion of necrotic hernia sac and fat. This was resected and the base tied with 3-0 Vicryl. I was able to then excise most of the sac down to fascial level. Cleared the fascial edge circumferentially and then placed interrupted and figure of 8 sutures of 0 Ethibond in the fascia at to close the defect. Because of the necrotic tissue I chose not to use mesh. Once the fascia was closed the subQ was closed with interrupted 3-0 Vicryl and the skin was closed with interrupted 4-0 Vicryl subcuticular stitches and Steri-Strips. Because of the patient's obesity and the difficulty with the operation this was an unusually difficult procedure for an umbilical hernia and took twice as long as 1 might expect. Complications: none Post-operative Condition: stable Disposition: PACU
[2021-07-10] MEDS: GABAPENTIN 300 MG CAPSULE PO (01:23)
[2021-07-10] MEDS: ACETAMINOPHEN 325 MG TABLET 975 MG PO (01:24)
--- NOTE | 2021-07-10 01:38 | SUR.PHASEI ---
0140 In PACU post incarcerated hernia repair. Small amount of pain, VSS. Called acute care and sent there
[2021-07-10] MEDS: KETOROLAC 30 MG/ML VIAL IV ×2 (02:06→07:54)
[2021-07-10] MEDS: CEFAZOLIN 2 GM/20 ML SYRINGE IV (08:03)
[2021-07-10] MEDS: ENOXAPARIN 40 MG/0.4 ML SYRINGE SUBCUT (08:03)
--- NOTE | 2021-07-10 12:27 | PM.DS.1 ---
History of Present Illness History of Present Illness Date Patient Seen: 07/10/21 Time Patient Seen: 12:27 Chief complaint: hernia, abd pain Narrative: The patient underwent surgery for an incarcerated umbilical hernia by Dr. Carlos starting on the evening of 07/09/2021 and finishing after midnight. There was no bowel resection. He was tolerating diet and feeling well in the morning. He was discharged home in the early afternoon. He did not feel that he needed any narcotic pain medications to go home on. Discharge Providers Provider Date of admission: 07/09/21 22:32 Discharge Date: 07/10/21 Consults: 07/10/21 01:46 Consult to Discharge Planning Routine Comment: Discharge provider: Kaz Calhoun MD Exam Vital Signs (past 8 hours): - 07/10/21 05:00 07/10/21 06:00 07/10/21 09:20 Temperature 98.4 F 98.5 F 98.5 F Pulse Rate 74 73 72 Respiratory Rate 18 18 16 Blood Pressure 121/74 109/69 135/71 Pulse Oximetry 92 93 97 Oxygen Delivery Method Room Air Oxygen Flow Rate 0 Narrative Exam Narrative: Abdomen soft, nontender, dressings intact and dry. Objective Labs Labs: Laboratory Results - last 24 hr 07/09/21 19:20 SARS-CoV-2 (PCR) Negative [facility] Medical History Calculus of kidney Erectile dysfunction History of nephrolithiasis Social History household members: spouse Smoking Status: Never smoker alcohol intake: current Discharge Plan Discharge Plan Patient Disposition: Home Provider Discharge Comment: Your procedure went well. You had some tissue within your hernia which I removed. None of it was intestinal. Discharge orders & Medications Prescriptions: New cephalexin 500 mg capsule 500 mg PO QID Qty: 14 0RF naproxen [Naprosyn] 500 mg tablet 500 mg PO BID PRN (Reason: painful procedure) Qty: 14 0RF Follow up/Referrals: West Carlos MD [Physician] - 1 Week (If you already have an appointment please keep it. If not call my office and make an appointment to see me in 1-2 weeks. If you need to reach a doctor please call our office. If it is after hours listen to the message and you will be instructed how to page the doctor on-call for our practice. Have a pen and paper ready to write the 1 800 number down.) Diet/Activity/Treatments Diet: Diet as Tolerated Activity: Do not drive into your pain-free off medication. Do not lift over 10 lb or strain for the next 6 weeks. You may walk. No pool or tub. No sex for 6 weeks. Skin/Wound/Dressing Care Report to your healthcare provider any signs of infection, such as:: increased pain, unusual drainage and unusual redness Dressing: You may remove the clear plastic dressing and Telfa immediately under it as well as the gauze at her belly button in 2 days and shower. Do not remove the tape which is under the Telfa and directly on the skin over your incisions. Visit Report/Discharge Packet Instructions: DI for Hernia Repair, [facility]: Wound Care Stand Alone Forms: Surgery Discharge Discharge Data Attending Provider: West Carlos VTE Deep Vein Thrombosis/Pulmonary Embolism Present on Admission: Yes
--- NOTE | 2021-07-10 12:47 | PC.NURSE ---
Day shift: Paperworki signed and all questions answered. Dressing remains CDI. Pt has all personal belongings. Pt's spouse in room for teachings. Pt has f/u w/ Dr Carlos in 1 week. scripts sent electronic to Pt's pharmacy. Pt refused WC. Pt ambulated w/ spouse and NILES Beltran to Pt's car. Pt's spouse is driving him home. Pt stated I walked in here and I'm going to walk out.
== END 2021-07-10 12:50 | disposition home or self-care (01) ==
LOC: ED 17:19 → AC 19:31
PROVIDERS: Admitting Provider Specialist; Emergency Provider Physician Assistant; Referring Provider Physician Assistant; Visit Provider Specialist
PROC: (CPT 49587; principal; 2021-07-09 21:00)
DX: K42.1 Umbilical hernia with gangrene (principal); E66.9 Obesity, unspecified; Z68.38 Body mass index [BMI] 38.0-38.9, adult; Z20.822 Contact with and (suspected) exposure to COVID-19
CPT/HCPCS: 49587; 76705; 87635; 96360; 96361; 99219; 99284; C9803; G0378; J0330; J0690; J1100; J1650; J1885; J2405; J2704; J3010